=== PATIENT | female | born 1965 | race Caucasian/White ===

== ENCOUNTER 2016-09-12 13:51 | Day surgery (SDC) | payer OTHER ==
[~2016-09-12] VITALS: Ht 157.5 cm; Wt 70.5 kg
[~2016-09-12 13:51] MED LIST: ALBUTEROL SULF8.5 GM IH; AMBIEN10 MG PO; AMITIZA24 MICROGR PO; ASPIR 8181 M1 PO; AZITHROMYCIN250 MG PO; CALCIUM 600 +1 EAC6 PO; CALCIUM MAGNES1 EACH PO; CARAFATE1 GM PO; CENTRUM ULTRA1 EAC1 PO; CHANTIX1 MG PO; CLARITIN10 MG PO; CLONAZEPAM1 MG PO; CYMBALTA60 MG PO; DURAGESIC25 MCG TD; EFFEXOR XR150 MG PO; FLEXERIL10 MG PO; FLEXERIL5 MG PO; FLOVENT 11120 INHALA IH; GLUCOPHAGE500 MG PO; GLUCOSE BITS1 GM PO; HYDROCODON-ACE1 EAC7 PO; INVOKANA300 MG PO; ISOSORBIDE MONO30 MG PO; KLONOPIN0.5 M1 PO; KLONOPIN1 MG PO; LATUDA40 MG PO; LATUDA60 MG PO; LEVEMIR FL100 UNIT/1 SC; LEVO-T88 MCG PO; LEVOTHROID100 MCG PO; LEVOTHYROXINE100 MCG PO; LISINOPRIL5 MG PO; LORATADINE10 M2 PO; LOTREL 5/101 CAPSULE PO; METFORMIN HCL500 MG PO; MORPHINE SULFAT15 M1 PO; MORPHINE SULFAT15 MG PO; MULTIPLE VITAM1 EAC1 PO; NEURONTIN600 MG PO; OMEPRAZOLE-BIC1 EAC1 PO; OXYCODONE HCL10 MG PO; POLYETHYLENE GL17 GM PO; PRAVACHOL10 MG PO; PRAVACHOL20 MG PO; PREDNISONE10 MG PO; PRILOSEC40 MG PO; PROAIR HFA8.5 GM IH; PROMETHAZINE HC25 M1 PO; SAPHRIS5 MG SL; SYNTHROID100 MCG PO; TEGRETOL-XR,CA200 MG PO; TEGRETOL-XR,CA400 MG PO; TRAUMEEL; TRAZODONE HCL50 MG PO; TUMS500 MG PO; TYLENOL REGULA325 MG PO; ULTRAM50 MG PO; VENLAFAXINE HC150 M1 PO; VITAMIN B-12 SC; VITAMIN B-121000 MC1 SL; VITAMIN B12-FO1 EACH PO; VITAMIN D SC; VITAMIN D22000 UNIT PO; VITAMIN D250000 UNIT PO; VOLTAREN 1% GE100 GM TP; ZOLPIDEM TARTRA10 MG PO; [UNRECOGNIZED DRUG - OTHER]; [UNRECOGNIZED DRUG - OTHER] PO; [UNRECOGNIZED DRUG - OTHER] PO
[2016-09-12 14:36] LABS: POINT-OF-CARE METER ID UU14174212
== END 2016-09-12 16:55 | disposition home or self-care (01) ==
LOC: PAIN 13:51 → SDC 14:45 → PAIN 16:55
PROVIDERS: Anesthesiology Pain Medicine
PROC: 015B3ZZ Destruction of Lumbar Nerve, Percutaneous Approach (ICD-10-PCS; principal; 2016-09-12)
DX: M47.816 Spondylosis without myelopathy or radiculopathy, lumbar region (principal); M54.5 Low back pain; F41.9 Anxiety disorder, unspecified; E11.9 Type 2 diabetes mellitus without complications; Z79.4 Long term (current) use of insulin; M50.20 Other cervical disc displacement, unspecified cervical region; M54.12 Radiculopathy, cervical region; M47.814 Spondylosis without myelopathy or radiculopathy, thoracic region; M25.532 Pain in left wrist; G89.29 Other chronic pain; Z87.891 Personal history of nicotine dependence; Z79.82 Long term (current) use of aspirin; Z79.891 Long term (current) use of opiate analgesic; E03.9 Hypothyroidism, unspecified; C64.9 Malignant neoplasm of unspecified kidney, except renal pelvis; J45.909 Unspecified asthma, uncomplicated; G40.909 Epilepsy, unspecified, not intractable, without status epilepticus; K21.9 Gastro-esophageal reflux disease without esophagitis; K58.9 Irritable bowel syndrome, unspecified; F32.9 Major depressive disorder, single episode, unspecified; M79.7 Fibromyalgia; Z88.2 Allergy status to sulfonamides; Z88.5 Allergy status to narcotic agent
CPT/HCPCS: 82948; J1030; J2250; J3010; S0020

== ENCOUNTER 2016-11-23 10:51 | Day surgery (SDC) | payer OTHER ==
[~2016-11-23] VITALS: Ht 157.5 cm; Wt 64.8 kg
[~2016-11-23 10:51] MED LIST changes: +ADVIL,NUPRIN,M200 MG PO; +DURAGESIC12 MCG TD; +NITROSTAT0.4 MG SL
[2016-11-23 11:38] LABS: POINT-OF-CARE METER ID UU14174212
== END 2016-11-23 12:41 | disposition home or self-care (01) ==
LOC: PAIN 10:51 → SDC 11:30 → PAIN 11:30
PROVIDERS: Anesthesiology Pain Medicine
PROC: 015B3ZZ Destruction of Lumbar Nerve, Percutaneous Approach (ICD-10-PCS; principal; 2016-11-23)
DX: M47.816 Spondylosis without myelopathy or radiculopathy, lumbar region (principal); F41.9 Anxiety disorder, unspecified; M54.5 Low back pain; G89.29 Other chronic pain; M25.532 Pain in left wrist; Z87.891 Personal history of nicotine dependence; M47.812 Spondylosis without myelopathy or radiculopathy, cervical region; M79.7 Fibromyalgia; E03.9 Hypothyroidism, unspecified; E11.9 Type 2 diabetes mellitus without complications; C64.9 Malignant neoplasm of unspecified kidney, except renal pelvis; F32.9 Major depressive disorder, single episode, unspecified; K58.9 Irritable bowel syndrome, unspecified; K21.9 Gastro-esophageal reflux disease without esophagitis; Z98.84 Bariatric surgery status; G43.909 Migraine, unspecified, not intractable, without status migrainosus; G40.909 Epilepsy, unspecified, not intractable, without status epilepticus; J45.909 Unspecified asthma, uncomplicated; Z79.891 Long term (current) use of opiate analgesic; Z79.82 Long term (current) use of aspirin
CPT/HCPCS: 82948; J1030; J2250; J3010; S0020

== ENCOUNTER → 2017-08-30 | Outpatient (CLI) | payer OTHER | END | disposition home or self-care (01) | LOC: NUC 08-24 07:00 | DX: R68.81 Early satiety (principal); Z98.84 Bariatric surgery status | CPT/HCPCS: 78264; A9541 ==

== ENCOUNTER 2017-10-02 09:32 | Day surgery (SDC) | payer OTHER ==
[~2017-10-02] VITALS: Ht 157.5 cm; Wt 54.4 kg
[~2017-10-02 09:32] MED LIST changes: +AMLODIPINE BES2.5 MG PO; +DILAUDID4 MG PO; +LEVOTHYROXINE75 MCG PO; +LOPRESSOR50 MG PO; +TRULICITY0.75 MG/0. SC
== END 2017-10-02 11:08 | disposition home or self-care (01) ==
LOC: PAIN 09:32 → SDC 10:15 → PAIN 11:08
PROVIDERS: Anesthesiology Pain Medicine
PROC: 015B3ZZ Destruction of Lumbar Nerve, Percutaneous Approach (ICD-10-PCS; principal; 2017-10-02)
DX: M47.816 Spondylosis without myelopathy or radiculopathy, lumbar region (principal); Z88.8 Allergy status to other drugs, medicaments and biological substances
CPT/HCPCS: 82948; J1030; J2250; J3010; S0020

== ENCOUNTER 2017-10-09 09:22 | Day surgery (SDC) | payer OTHER ==
[~2017-10-09] VITALS: Ht 157.5 cm; Wt 54.4 kg
== END 2017-10-09 12:26 | disposition home or self-care (01) ==
LOC: PAIN 09:22 → SDC 10:00 → PAIN 10:00
PROVIDERS: Anesthesiology Pain Medicine
PROC: BR161ZZ Fluoroscopy of Lumbar Facet Joint(s) using Low Osmolar Contrast (ICD-10-PCS; principal; 2017-10-09)
PROC: 3E0T3TZ Introduction of Destructive Agent into Peripheral Nerves and Plexi, Percutaneous Approach (ICD-10-PCS; principal; 2017-10-09)
DX: M47.816 Spondylosis without myelopathy or radiculopathy, lumbar region (principal); M54.16 Radiculopathy, lumbar region; M47.814 Spondylosis without myelopathy or radiculopathy, thoracic region; K21.9 Gastro-esophageal reflux disease without esophagitis; J45.909 Unspecified asthma, uncomplicated; I10 Essential (primary) hypertension; E11.9 Type 2 diabetes mellitus without complications; E03.9 Hypothyroidism, unspecified; M79.7 Fibromyalgia; F41.9 Anxiety disorder, unspecified; G89.29 Other chronic pain; Z88.2 Allergy status to sulfonamides; Z79.891 Long term (current) use of opiate analgesic; Z87.891 Personal history of nicotine dependence
CPT/HCPCS: 82948; 84132; J1030; J2250; J3010; S0020